=== PATIENT | female | born 1980 | race Caucasian/White ===

== ENCOUNTER → 2016-09-23 | Outpatient (CLI) | payer OTHER ==
[~2016-09-23] MED LIST: BIRTH CONTROL PILL PO; KEPPRA750 MG PO; PHENERGAN25 MG PO
--- NOTE | ~2016-09-23 | CR219 ---
[facility]. [facility] A Service of [facility] RADIOLOGY TEXT RESULTS PATIENT: YAJAIRA RYAN LOCATION: SRA : 80 UNIT #: [id number] AGE: [address]: MEGAN ADAMS APRN SEX: F ORDER DR: [id number] [address] [address] [id number] O MR#: [id number] Acc #: [id number] NAME: YAJAIRA RYAN : 1980 SEX: F STUDY DATE/TIME: 09/23/2016 16:31 UNIT: SRA ROOM: STUDY DESCRIPTION: CR Sacrum and Coccyx Min 2 Vie Attending Physician: Megan Adams Aprn Referring Physician: Megan Adams Aprn Ordering Physician: Megan Adams Aprn Primary Care Physician: Megan Adams Aprn MEDICAL IMAGING REPORT This report is preliminary unless electronic signature is present. EXAM Sacrum and coccyx AP and lateral 3 views HISTORY Chronic sacrococcygeal pain. Fell 2 years ago. FINDINGS 3 views of the sacrum and coccyx demonstrate satisfactory bone alignment. No fracture or abnormal sclerosis. Symmetric sacroiliac joints. IMPRESSION Negative. Dictated by... Roderick Pedraza M.D. THIS IS AN ELECTRONICALLY VERIFIED REPORT Roderick Pedraza M.D. at 09/24/2016 3:57 PM DFEfrain/addie TD: 09/24/2016 09:53 JOB #: [id number] MEDICAL IMAGING REPORT
== END | disposition home or self-care (01) ==
LOC: SRAD 16:26
DX: M53.3 Sacrococcygeal disorders, not elsewhere classified (principal)
CPT/HCPCS: 72220